=== PATIENT | male | born 1960 | race Caucasian/White ===

== ENCOUNTER 2017-04-02 09:06 | Day surgery (SDC) | payer MEDICARE, OTHER ==
[~2017-04-02] VITALS: Ht 172.7 cm; Wt 75.5 kg
[~2017-04-02 09:06] MED LIST: ASPI81CH; CLOP75 PO; FOLI1; ISOMON20 PO; LISI5 PO; LOVA40 PO; METO50 PO; OXYACE5T PO; PANT40; PENVK500 PO; PROM25; Percocet 5-3251 EACH PO; Ranexa1000 MG; TAMS.4ER PO; TRAM50 PO; Valium5 MG PO; WARF7.5 PO; Zofran Odt4 MG SL
[2017-04-02 10:32] LABS: BASOPHILS ABSOLUTE AUTO 0.06 K/mm3 (0.00-0.23); BASOPHILS PERCENT AUTO 1 % (0-2); EOSINOPHILS ABSOLUTE AUTO 0.13 K/mm3 (0.00-0.68); EOSINOPHILS PERCENT AUTO 2 % (0-6); Hematocrit 50.1 % (37.0-53.0); Hemoglobin 16.5 g/dL (13.5-17.5); IMMATURE GRAN ABSOLUTE AUTO 0.02 K/mm3 (0.00-0.10); IMMATURE GRAN PERCENT AUTO 0 % (0-1); LYMPHOCYTES ABSOLUTE AUTO 2.76 K/mm3 (0.84-5.20); LYMPHOCYTES PERCENT AUTO 33 % (21-46); MONOCYTES ABSOLUTE AUTO 0.65 K/mm3 (0.16-1.47); MONOCYTES PERCENT AUTO 8 % (4-13); Mean Corpuscular HGB Conc 32.9 g/dL (31.5-36.5); Mean Corpuscular Volume 97 fL (80-100); Mean Platelet Volume 9.6 fL (9.1-12.4); NEUTROPHILS ABSOLUTE AUTO 4.68 K/mm3 (1.96-9.15); NEUTROPHILS PERCENT AUTO 56 % (41-73); Platelet Count 230 K/mm3 (150-400); RDW Coefficient Variation 12.7 % (11.7-14.2); RDW Standard Deviation 45.5 fL (35.1-46.3); Red Blood Cell Count 5.15 M/mm3 (4.30-5.90)
[2017-04-02 10:40] LABS: International Normalized Ratio 1.08; Prothrombin Time Results 11.3 Sec (9.7-11.5)
[2017-04-02 10:42] LABS: Anion Gap 8 mmol/L (6-16); Blood Urea Nitrogen 13 mg/dL (8-24); Bun/Creatinine Ratio 14.1 (12.0-20.0); CO2, Blood 27 mmol/L (21-32); Calcium, Blood 8.9 mg/dL (8.5-10.1); Chloride, Blood 103 mmol/L (98-108); Creatinine, Blood 0.92 mg/dL (0.60-1.20); Glomerular Filtration Rate >60 (60-); Glucose, Blood 84 mg/dL (70-99); Potassium, Blood 4.2 mmol/L (3.5-5.5); Sodium, Blood 138 mmol/L (136-145)
== END 2017-04-02 16:45 | disposition home or self-care (01) ==
LOC: MHTC 09:06
PROVIDERS: Internal Medicine Cardiovascular Disease
PROC: 4A023N7 Measurement of Cardiac Sampling and Pressure, Left Heart, Percutaneous Approach (ICD-10-PCS; principal; 2017-04-02)
DX: R07.9 Chest pain, unspecified (principal); I25.10 Atherosclerotic heart disease of native coronary artery without angina pectoris; E78.5 Hyperlipidemia, unspecified; I10 Essential (primary) hypertension; F17.200 Nicotine dependence, unspecified, uncomplicated; Z88.8 Allergy status to other drugs, medicaments and biological substances; Z88.5 Allergy status to narcotic agent; Z95.1 Presence of aortocoronary bypass graft
CPT/HCPCS: 80048; 85025; 85610; 93458; 99152; 99153; C1769; C1894; J0690; J1644; J2250; J3010; J7030; Q9967

== ENCOUNTER → 2017-09-10 | Outpatient (CLI) | payer MEDICARE, OTHER ==
[2017-09-10 16:30] LABS: U Amphetamine Screen Not Detected; U Barbituate Screen Not Detected; U Benzodiazapine Screen Not Detected; U Buprenorphine Screen DETECTED; U Cannabinoids Screen Not Detected; U Cocaine Screen Not Detected; U Methadone Screen Not Detected; U Methamphetamine Screen Not Detected; U Opiates Screen Not Detected; U Oxycodone Screen Not Detected; U Phencyclidine Screen Not Detected; U Propoxyphene Screen Not Detected
== END ==
LOC: LAB 15:08 → LAB SHORT 15:08
PROVIDERS: Internal Medicine Hematology & Oncology
DX: Z51.81 Encounter for therapeutic drug level monitoring (principal); Z79.899 Other long term (current) drug therapy

== ENCOUNTER → 2018-04-15 | Outpatient (CLI) | payer MEDICARE, OTHER ==
[2018-04-15 13:29] LABS: U Amphetamine Screen Not Detected; U Barbituate Screen Not Detected; U Benzodiazapine Screen Not Detected; U Buprenorphine Screen DETECTED; U Cannabinoids Screen Not Detected; U Cocaine Screen Not Detected; U Methadone Screen Not Detected; U Methamphetamine Screen Not Detected; U Opiates Screen Not Detected; U Oxycodone Screen Not Detected; U Phencyclidine Screen Not Detected; U Propoxyphene Screen Not Detected
== END | disposition home or self-care (01) ==
LOC: LAB SHORT 11:24 → LAB 11:24
PROVIDERS: Internal Medicine Hematology & Oncology
DX: Z51.81 Encounter for therapeutic drug level monitoring (principal); F11.20 Opioid dependence, uncomplicated; Z79.899 Other long term (current) drug therapy
CPT/HCPCS: G0480

== ENCOUNTER 2018-06-28 00:49 | Emergency (ER) | payer MEDICARE, OTHER ==
[~2018-06-28] VITALS: Ht 170.2 cm; Wt 74.8 kg
[2018-06-28 01:09] LABS: BASOPHILS ABSOLUTE AUTO 0.06 K/mm3 (0.00-0.23); BASOPHILS PERCENT AUTO 0 % (0-2); EOSINOPHILS PERCENT AUTO 0 % (0-6); Hematocrit 47.2 % (37.0-53.0); Hemoglobin 15.6 g/dL (13.5-17.5); IMMATURE GRAN ABSOLUTE AUTO 0.09 K/mm3 (0.00-0.10); IMMATURE GRAN PERCENT AUTO 1 % (0-1); LYMPHOCYTES ABSOLUTE AUTO 1.14 K/mm3 (0.84-5.20); LYMPHOCYTES PERCENT AUTO 6 % (21-46); MONOCYTES ABSOLUTE AUTO 0.49 K/mm3 (0.16-1.47); MONOCYTES PERCENT AUTO 3 % (4-13); Mean Corpuscular HGB 31.9 pg (26.0-34.0); Mean Corpuscular HGB Conc 33.1 g/dL (31.5-36.5); Mean Corpuscular Volume 97 fL (80-100); Mean Platelet Volume 9.8 fL (9.1-12.4); NEUTROPHILS PERCENT AUTO 91 % (41-73); Platelet Count 355 K/mm3 (150-400); RDW Coefficient Variation 12.1 % (11.7-14.2); RDW Standard Deviation 43.7 fL (35.1-46.3); Red Blood Cell Count 4.89 M/mm3 (4.30-5.90); White Blood Cell Count 18.88 K/mm3 (4.00-11.30)
[2018-06-28 01:28] LABS: Alanine Aminotransfer (ALT/SGP 18 U/L (12-78); Albumin, Blood 3.8 g/dL (3.4-5.0); Albumin/Globulin Ratio 1.1 (0.8-1.8); Alk Phos 104 U/L (50-136); Anion Gap 7 mmol/L (6-16); Aspartate Aminotrans (AST/SGOT 26 U/L (12-37); Bilirubin, Total 0.5 mg/dL (0.1-1.0); Blood Urea Nitrogen 9 mg/dL (8-24); Bun/Creatinine Ratio 10.7 (12.0-20.0); CO2, Blood 25 mmol/L (21-32); Chloride, Blood 108 mmol/L (98-108); Creatinine, Blood 0.84 mg/dL (0.60-1.20); Globulin, Blood 3.5 g/dL (2.2-4.0); Glomerular Filtration Rate >60 (60-); Glucose, Blood 135 mg/dL (70-99); Potassium, Blood 4.2 mmol/L (3.5-5.5); Sodium, Blood 140 mmol/L (136-145); Total Protein, Blood 7.3 g/dL (6.4-8.2)
[2018-06-28] MEDS ORDERED: Zofran4 MG PO (02:09)
[2018-06-28] MEDS ORDERED: Ativan0.5 MG PO (02:09)
[2018-06-28] MEDS ORDERED: BENADRYL25 MG PO (02:09)
== END 2018-06-28 02:45 | disposition home or self-care (01) ==
LOC: ER 00:49
PROVIDERS: Emergency Medicine
DX: F11.23 Opioid dependence with withdrawal (principal); I25.10 Atherosclerotic heart disease of native coronary artery without angina pectoris; F17.200 Nicotine dependence, unspecified, uncomplicated; Z88.5 Allergy status to narcotic agent; Z88.8 Allergy status to other drugs, medicaments and biological substances; Z79.899 Other long term (current) drug therapy; Z79.01 Long term (current) use of anticoagulants; Z79.02 Long term (current) use of antithrombotics/antiplatelets; Z79.82 Long term (current) use of aspirin
CPT/HCPCS: 80053; 83690; 85025; 96361; 96374; 96375; 99284-25; A9270-GY; J1200; J2060; J2405; J2765; J7030

== ENCOUNTER 2020-04-30 23:36 | Inpatient (IN) | payer MEDICARE, OTHER ==
[~2020-04-30] VITALS: Ht 182.9 cm; Wt 90.1 kg
[~2020-04-30 23:36] MED LIST changes: +Ativan0.5 MG PO; +BENADRYL25 MG PO; +IBU800 MG PO; +Zofran4 MG PO
[2020-05-01 00:05] LABS: Calcium, Ionized (POC) 0.96 mmol/L (1.10-1.46); Chloride (POC) 102 mmol/L (98-108); Glucose (ISTAT POC) 152 mg/dL (70-99); Potassium (POC) 4.8 mmol/L (3.5-5.5); Sodium (POC) 133 mmol/L (135-148); Total CO2 (POC) 26 mmol/L (21-32)
[2020-05-01 00:29] LABS: BASOPHILS ABSOLUTE AUTO 0.18 K/mm3 (0.00-0.23); BASOPHILS PERCENT AUTO 1 % (0-2); EOSINOPHILS ABSOLUTE AUTO 0.14 K/mm3 (0.00-0.68); EOSINOPHILS PERCENT AUTO 1 % (0-6); Hematocrit 48.8 % (37.0-53.0); Hemoglobin 15.6 g/dL (13.5-17.5); IMMATURE GRAN ABSOLUTE AUTO 0.95 K/mm3 (0.00-0.10); IMMATURE GRAN PERCENT AUTO 5 % (0-1); LYMPHOCYTES ABSOLUTE AUTO 4.62 K/mm3 (0.84-5.20); LYMPHOCYTES PERCENT AUTO 22 % (21-46); MONOCYTES ABSOLUTE AUTO 0.98 K/mm3 (0.16-1.47); MONOCYTES PERCENT AUTO 5 % (4-13); Mean Corpuscular HGB 33.2 pg (26.0-34.0); Mean Corpuscular Volume 104 fL (80-100); Mean Platelet Volume 9.2 fL (9.1-12.4); NEUTROPHILS ABSOLUTE AUTO 14.01 K/mm3 (1.96-9.15); NEUTROPHILS PERCENT AUTO 67 % (41-73); NRBC ABSOLUTE 0.02 K/mm3 (0.00-0.02); NRBC Auto 0.1 /100 WBC (0.0-0.2); Platelet Count 205 K/mm3 (150-400); RDW Coefficient Variation 13.8 % (11.7-14.2); RDW Standard Deviation 53.4 fL (35.1-46.3); White Blood Cell Count 20.88 K/mm3 (4.00-11.30)
[2020-05-01 00:30] LABS: Source, Urine Clean Catch
[2020-05-01 00:34] LABS: Appearance, Urine Cloudy (Clear); Bilirubin, Urine Neg (Neg); Blood, Urine 3+ (Neg); Color, Urine Yellow (P-Yellow); Glucose Qualitative, Urine Neg (Neg); Ketones, Urine Neg (Neg); Leukocyte Esterase, Urine 1+ (Neg); Nitrite, Urine Neg (Neg); Protein, Urine 4+ (Neg); Specific Gravity, Urine 1.025 (1.003-1.022); Urobilinogen, Urine 1+ (Normal)
[2020-05-01 00:38] LABS: PCO2 Arterial 52.1 mmHg (35-45); PO2 Arterial 105 mmHg (80-100)
[2020-05-01 00:39] LABS: pH Blood Arterial 7.28 (7.35-7.45)
[2020-05-01 01:01] LABS: U Amphetamine Screen Not Detected; U Barbituate Screen Not Detected; U Benzodiazapine Screen Not Detected; U Buprenorphine Screen DETECTED; U Cannabinoids Screen Not Detected; U Cocaine Screen Not Detected; U Methadone Screen Not Detected; U Methamphetamine Screen Not Detected; U Opiates Screen DETECTED; U Oxycodone Screen Not Detected; U Phencyclidine Screen Not Detected; U Propoxyphene Screen Not Detected
[2020-05-01 01:07] LABS: Amorphous Mod (0-Heavy); Bacteria Few /hpf; Squamous Epithelial Cells Few /hpf (Few); White Blood Cells, Urine 0-2 /hpf (0-5)
[2020-05-01 01:08] LABS: Hyaline Casts 0-2 /lpf (0-2)
[2020-05-01 01:22] LABS: Alanine Aminotransfer (ALT/SGP 154 U/L (12-78); Albumin, Blood 2.8 g/dL (3.4-5.0); Alk Phos 86 U/L (50-136); Anion Gap 4 mmol/L (6-16); Aspartate Aminotrans (AST/SGOT 181 U/L (12-37); Bilirubin, Total 0.3 mg/dL (0.1-1.0); Blood Urea Nitrogen 14 mg/dL (8-24); Bun/Creatinine Ratio 14.3 (12.0-20.0); CO2, Blood 26 mmol/L (21-32); Calcium, Blood 7.2 mg/dL (8.5-10.1); Chloride, Blood 108 mmol/L (98-108); Creatinine, Blood 0.98 mg/dL (0.60-1.20); Globulin, Blood 2.9 g/dL (2.2-4.0); Glomerular Filtration Rate >60 (60-); Glucose, Blood 155 mg/dL (70-99); Potassium, Blood 4.2 mmol/L (3.5-5.5); Sodium, Blood 138 mmol/L (136-145); Total Protein, Blood 5.7 g/dL (6.4-8.2); Troponin I 0.128 ng/mL (0.000-0.040)
[2020-05-01 01:48] LABS: International Normalized Ratio 1.17; Prothrombin Time Results 12.4 Sec (9.7-11.5)
--- NOTE | 2020-05-01 07:45 | NUR ---
ASSUMPTION OF CARE/SUMMARY PT TO ICU 13 VIA HOSPITAL BED WITH LUDLOW MACHINE OPERATOR RN @ [id number]. PT INTUBATED AND SEDATED WITH PROPOFOL. PT UNRESPONSIVE, NOT WITHDRAWING FROMAIN PAINFUL STIMULI, NO COUGH REFLEX AND PUPILS PINPOINT. VENT TO TO AC 18/500/5/30%. PTS EARS, HANDS AND FEET CYANOTIC. MONITOR SHOWS IRREGULAR RHYTHM WITH HR 80'S-90'S, BP STABLE. PER REPORT FROM , PT FOUND DOWN AND CPR INITIATED BY , NO BRUISING OR OTHER TRAUMA NOTED TO CHEST. PT GIVEN 300 AMIO IN THE FIELD, LUDLOW MACHINE OPERATOR BROUGHT AMIO GTT TO ROOM, VERBAL ORDER TO DC AMIO GTT FROM DR BROWNLEE. PTS SKIN IS COOL, RADIAL AND PEDAL PULSES PALPABLE, HEPARIN GTT INTITIATED, MANAGED PER PHARMACY. OG IN PLACE WITH DARK RED OUTPUT, DR BROWNLEE AWARE. TEMP PROBE OAKLEY IN PLACE. COOLING INITITATED WITH COOLING BLANKET. PT BEGAN HAVING SPORADIC MOVEMENT OF ENTIRE BODY, DIFFICULT TO DISCERN, SEIZURE VS POSTURING VS TWITCHING, ACTIVITY LASTED APPROX 5 MINUTES. REPORT GIVEN TO DANTE LOPEZ.
--- NOTE | 2020-05-01 08:00 | NUR ---
INITIAL ASSESSMENT PATIENT INTUBATED AND ON SEDATION. PATIENT UNRESPONSIVE AT THIS TIME. NO COUGH/ GAG/ SWALLOW REFLEXES NOTED. EXES FIXED AND PINPOINT. COOLING BLANKET ON. COOLING BLANKET ADJUSTED BY THIS NURSE FROM MANUAL, WITH BLANKET SET AT 33 DEGREES, TO AUTO FOR GOAL TEMP OF 96.8 DEGREES FAHRENHEIT. NO SIGNS OF PAIN NOTED. PATIENT ON VENT SETTINGS OF AC 18, TV 500, PEEP 5 AND 30% FIO2. ETT 7.5, 24 AT THE GUMS. LUNGS COARSE THROUGHOUT. PATIENT IN SR WITH BBB, HR 60S TO 70S. SBP 90S TO LOW 100S. PULSES FAINT. HANDS, FEET, AND EARS DUSKY; ALL CAP REFILLS LESS THAN 3 SECONDS. TRACE EDEMA NOTED TO BILAT FEET. ABDOMEN MODERATELY DISTENDED, FIRM, WITH HYPOACTIVE BS NOTED. OG TO LIS; COFFEE GROUND DRAINAGE NOTED. OG BEING CLAMPED FOR 1 HOUR AFTER MEDICATION ADMINISTRATION. LAST BM ON THE . OAKLEY IN PLACE DRAINING YELLOW, CLOUDY COLORED URINE WITH SEDIMENT NOTED. ANGIOSEAL TO R GROIN FROM REAL ESTATE BROKER. TEGARDERM CHG IN PLACE. NO BLEEDING, BRUISING, OR HEMATOMA NOTED. SCAR NOTED TO MIDLINE CHEST. SOME DISCOLORATION NOTED TO PATIENT'S NECK; BLANCHABLE. PROPOFOL INFUSING AT 50 MCG/ KG/ MINUTE, HEPARIN AT 15 UNITS/ KG/ HOUR, NS TKO. EKG PERFORMED. BED LOW. WILL CONTINUE TO MONITOR PATIENT FREQUENTLY THROUGHOUT SHIFT.
[2020-05-01 08:15] LABS: BASOPHILS ABSOLUTE AUTO 0.05 K/mm3 (0.00-0.23); BASOPHILS PERCENT AUTO 0 % (0-2); EOSINOPHILS ABSOLUTE AUTO 0.01 K/mm3 (0.00-0.68); EOSINOPHILS PERCENT AUTO 0 % (0-6); Hematocrit 50.2 % (37.0-53.0); Hemoglobin 16.1 g/dL (13.5-17.5); IMMATURE GRAN ABSOLUTE AUTO 0.11 K/mm3 (0.00-0.10); IMMATURE GRAN PERCENT AUTO 1 % (0-1); LYMPHOCYTES ABSOLUTE AUTO 1.11 K/mm3 (0.84-5.20); LYMPHOCYTES PERCENT AUTO 6 % (21-46); MONOCYTES ABSOLUTE AUTO 1.15 K/mm3 (0.16-1.47); MONOCYTES PERCENT AUTO 7 % (4-13); Mean Corpuscular HGB 33.4 pg (26.0-34.0); Mean Corpuscular HGB Conc 32.1 g/dL (31.5-36.5); Mean Corpuscular Volume 104 fL (80-100); Mean Platelet Volume 9.3 fL (9.1-12.4); NEUTROPHILS ABSOLUTE AUTO 15.14 K/mm3 (1.96-9.15); NEUTROPHILS PERCENT AUTO 86 % (41-73); Platelet Count 175 K/mm3 (150-400); RDW Coefficient Variation 13.8 % (11.7-14.2); RDW Standard Deviation 53.4 fL (35.1-46.3); Red Blood Cell Count 4.82 M/mm3 (4.30-5.90); White Blood Cell Count 17.57 K/mm3 (4.00-11.30)
[2020-05-01 08:17] LABS: PCO2 Arterial 43.8 mmHg (35-45); PO2 Arterial 89.9 mmHg (80-100); pH Blood Arterial 7.31 (7.35-7.45)
[2020-05-01 08:54] LABS: Anion Gap 8 mmol/L (6-16); Blood Urea Nitrogen 13 mg/dL (8-24); Bun/Creatinine Ratio 16.4 (12.0-20.0); CO2, Blood 21 mmol/L (21-32); Calcium, Blood 8.2 mg/dL (8.5-10.1); Chloride, Blood 106 mmol/L (98-108); Creatinine, Blood 0.79 mg/dL (0.60-1.20); Glomerular Filtration Rate >60 (60-); Glucose, Blood 130 mg/dL (70-99); Potassium, Blood 4.6 mmol/L (3.5-5.5); Sodium, Blood 135 mmol/L (136-145)
--- NOTE | 2020-05-01 09:17 | NUR ---
DR. MCBRIDE INFORMED OF TROPONIN OF 6.790 AND THAT EKG RESULTS ARE AVAILABLE IF HE WOULD LIKE TO TAKE A LOOK. STATED HE WOULD BE DOWN TO LOOK SHORTLY.
--- NOTE | 2020-05-01 10:30 | NUR ---
DR. TINOCO AND DR. BROWNLEE IN ROOM TO SEE PATIENT. UPDATED ON PATIENT STATUS/ CONDITION. DR. BROWNLEE STATED SHE WOULD LIKE TARGETED HYPOTHERMIA FOR [address] BROWNLEE ALSO STATED THAT NO NEED FOR SEDATION VACATION TO ASSESS NEURO STATUS UNTIL 24 HOURS POST ARREST.
--- NOTE | 2020-05-01 12:00 | NUR ---
PATIENT HAS TEMP OF 96.2 DEGREES FAHRENHEIT. PATIENT REMAINS UNRESPONSIVE, INTUBATED AND ON SEDATION. PROPOFOL DECREASED TO 40 MCG/ KG/ MINUTE. SCLERA REDDENED. HR 60S TO 70S. SBP 120S TO 130S. URINE OUTPUT ONLY 100 MLS FOR THIS SHIFT. BLOOD SUGAR OF 152. NO OTHER ACUTE CHANGES TO NOTE ON AT THIS TIME. WILL CONTINUE TO MONITOR.
[2020-05-01 12:09] LABS: Test Name PTT
[2020-05-01 12:43] LABS: Result >150
[2020-05-01 14:55] LABS: BASOPHILS ABSOLUTE AUTO 0.04 K/mm3 (0.00-0.23); BASOPHILS PERCENT AUTO 0 % (0-2); EOSINOPHILS PERCENT AUTO 0 % (0-6); Hematocrit 48.1 % (37.0-53.0); Hemoglobin 15.9 g/dL (13.5-17.5); IMMATURE GRAN ABSOLUTE AUTO 0.08 K/mm3 (0.00-0.10); IMMATURE GRAN PERCENT AUTO 1 % (0-1); LYMPHOCYTES ABSOLUTE AUTO 0.96 K/mm3 (0.84-5.20); LYMPHOCYTES PERCENT AUTO 6 % (21-46); MONOCYTES ABSOLUTE AUTO 1.21 K/mm3 (0.16-1.47); MONOCYTES PERCENT AUTO 8 % (4-13); Mean Corpuscular HGB 33.6 pg (26.0-34.0); Mean Corpuscular HGB Conc 33.1 g/dL (31.5-36.5); Mean Corpuscular Volume 102 fL (80-100); Mean Platelet Volume 9.7 fL (9.1-12.4); NEUTROPHILS PERCENT AUTO 85 % (41-73); Platelet Count 196 K/mm3 (150-400); RDW Coefficient Variation 13.9 % (11.7-14.2); RDW Standard Deviation 53.1 fL (35.1-46.3); Red Blood Cell Count 4.73 M/mm3 (4.30-5.90); White Blood Cell Count 15.69 K/mm3 (4.00-11.30)
--- NOTE | 2020-05-01 15:33 | NUR ---
TEMP OF 99.6 DEGREES FAHRENHEIT. COOLING BLANKET OFF PER DR. BROWNLEE PATIENT WOKE NEUROLOGICALLY. HR 8OS T0 90S. SBP LOW 100S. HEPARIN AT 13 UNITS/ KG/ HOUR. PRECEDEX AT 0.7 MCG/ KG/ HOUR, LR AT 75 MLS/ HOUR.
[2020-05-01 15:37] LABS: Triglycerides 216 mg/dL (30-160)
[2020-05-01 15:44] LABS: Anion Gap 8 mmol/L (6-16); Blood Urea Nitrogen 14 mg/dL (8-24); Bun/Creatinine Ratio 19.1 (12.0-20.0); CO2, Blood 24 mmol/L (21-32); Calcium, Blood 8.5 mg/dL (8.5-10.1); Chloride, Blood 105 mmol/L (98-108); Creatinine, Blood 0.73 mg/dL (0.60-1.20); Glomerular Filtration Rate >60 (60-); Glucose, Blood 122 mg/dL (70-99); Sodium, Blood 137 mmol/L (136-145)
--- NOTE | 2020-05-01 17:24 | NUR ---
REPORT GIVEN TO ASSUMING NURSE, BAYLEE JIN.
--- NOTE | 2020-05-01 17:52 | NUR ---
PT HYPOENSIVE W MAP 50'S. PRECEDEX PLACED ON SB. PROPOFOL AT 10MCG. PT STACKING AND AGITATED. ATIVAN 1MG GIVEN; THIS HELPED. DR BROWNLEE NOTIFIED. 1LITER NS BOLUS ORDERED AND STARTED. PICC TO BE PLACED. COPIOUS AMTS OF THICK DYE SPUTUM SUCTIONED. SPUTUM SENT.
--- NOTE | 2020-05-01 18:44 | NUR ---
PICC PLACED W/O DIFFICULTY. PT REMAINS HYPOTENSIVE. LEVOPHED GTT STARTED AT 4MCG. PT'S UPDATED
--- NOTE | 2020-05-01 18:45 | NUR ---
Ashtyn said for Mr. Hill at bedside. No family present throughout shift. Pt on vent and sedated. I will remain available to pt and family.
--- NOTE | 2020-05-01 21:00 | NUR ---
ASSUMPTION OF CARE PT INTUBATED AND SEDATED, VENT SET TO AC 18/450/5/30%, PT DOES NOT WITHDRAW FROM PAINFUL STIMULI, PUPILS EQUAL AND REACTIVE, WHILE IN ROOM, PT BEGAN SHAKING, LIMBS WERE VERY RIGID AND HIGH PEAK PRESSURES NOTED ON THE VENT. MEDICATED WITH 2MG ATIVAN AND NOTIFIED DR BROWNLEE OF POSS SEIZURE ACTIVITY. NEW ORDER PLACED FOR EEG. MONITOR SHOWS SINUS RHYTHM WIHT BBB, HR 70'S, LEVO INF TO MAINTAIN MAPS> 65. SKIN IS COOL, CYANOSIS IN EXTREMETIES BUT IMPROVED FROM PREVIOUS SHIFT. OG IN PLACE TO LIS, OAKLEY IN PLACE WITH LITTLE URINE OUTPUT.
--- NOTE | 2020-05-02 | NUR ---
AFIB RVR PT NOTED TO GOT INTO AFIB WITH RVR @ APPROX [id number], DR BROWNLEE NOTIFIED AND UPDATED ON PTS STATUS, LEVO ON SB SINCE 2100 WITH STABLE BP. NEW ORDER FOR AMIO BOLUS AND AMIO GTT, CHEMISTRY PANEL ORDERED AT THIS TIME.
[2020-05-02 00:56] LABS: BASOPHILS ABSOLUTE AUTO 0.02 K/mm3 (0.00-0.23); BASOPHILS PERCENT AUTO 0 % (0-2); EOSINOPHILS PERCENT AUTO 0 % (0-6); Hematocrit 42.1 % (37.0-53.0); Hemoglobin 13.5 g/dL (13.5-17.5); IMMATURE GRAN ABSOLUTE AUTO 0.19 K/mm3 (0.00-0.10); IMMATURE GRAN PERCENT AUTO 1 % (0-1); LYMPHOCYTES ABSOLUTE AUTO 1.34 K/mm3 (0.84-5.20); LYMPHOCYTES PERCENT AUTO 9 % (21-46); MONOCYTES PERCENT AUTO 7 % (4-13); Mean Corpuscular HGB 32.9 pg (26.0-34.0); Mean Corpuscular HGB Conc 32.1 g/dL (31.5-36.5); Mean Corpuscular Volume 103 fL (80-100); Mean Platelet Volume 10.1 fL (9.1-12.4); NEUTROPHILS ABSOLUTE AUTO 12.89 K/mm3 (1.96-9.15); NEUTROPHILS PERCENT AUTO 84 % (41-73); NRBC ABSOLUTE 0.02 K/mm3 (0.00-0.02); NRBC Auto 0.1 /100 WBC (0.0-0.2); Platelet Count 162 K/mm3 (150-400); RDW Coefficient Variation 14.2 % (11.7-14.2); RDW Standard Deviation 54.2 fL (35.1-46.3); White Blood Cell Count 15.44 K/mm3 (4.00-11.30)
--- NOTE | 2020-05-02 01:00 | NUR ---
CODE SAMMY THIS NURSE AT BEDSIDE TO DRAW ORDERED LABS, RHYTHM ON MONITOR SHOWED ASYSTOLE, UNABLE TO PALPATE CAROTID PULSE, CODE BLUE INITIATED AND COMPRESSIONS STARTED @ 0014. SEE CODE BLUE SHEET FOR RHYTHM AND MEDS. PT CURRENLTY ON EPI AND DOPAMINE GTT TO MAINTAIN HR AND BP. PTS SPOUSE AND SON NOTIFIED.
[2020-05-02 01:03] LABS: Alanine Aminotransfer (ALT/SGP 129 U/L (12-78); Albumin, Blood 2.5 g/dL (3.4-5.0); Alk Phos 68 U/L (50-136); Anion Gap 8 mmol/L (6-16); Aspartate Aminotrans (AST/SGOT 544 U/L (12-37); Bilirubin, Total 0.7 mg/dL (0.1-1.0); Blood Urea Nitrogen 11 mg/dL (8-24); Bun/Creatinine Ratio 15.8 (12.0-20.0); CO2, Blood 23 mmol/L (21-32); Calcium, Blood 7.6 mg/dL (8.5-10.1); Chloride, Blood 107 mmol/L (98-108); Globulin, Blood 2.6 g/dL (2.2-4.0); Glomerular Filtration Rate >60 (60-); Glucose, Blood 119 mg/dL (70-99); Magnesium, Blood 1.8 mg/dL (1.6-2.4); Phosphorus, Blood 2.4 mg/dL (2.5-4.9); Potassium, Blood 4.7 mmol/L (3.5-5.5); Sodium, Blood 138 mmol/L (136-145); Total Protein, Blood 5.1 g/dL (6.4-8.2)
[2020-05-02 04:50] LABS: PO2 Arterial 182 mmHg (80-100); pH Blood Arterial 7.12 (7.35-7.45)
[2020-05-02 05:08] LABS: BASOPHILS ABSOLUTE AUTO 0.08 K/mm3 (0.00-0.23); BASOPHILS PERCENT AUTO 0 % (0-2); EOSINOPHILS ABSOLUTE AUTO 0.03 K/mm3 (0.00-0.68); EOSINOPHILS PERCENT AUTO 0 % (0-6); Hematocrit 44.2 % (37.0-53.0); Hemoglobin 13.8 g/dL (13.5-17.5); IMMATURE GRAN ABSOLUTE AUTO 0.23 K/mm3 (0.00-0.10); IMMATURE GRAN PERCENT AUTO 1 % (0-1); LYMPHOCYTES ABSOLUTE AUTO 1.08 K/mm3 (0.84-5.20); LYMPHOCYTES PERCENT AUTO 4 % (21-46); MONOCYTES ABSOLUTE AUTO 1.75 K/mm3 (0.16-1.47); MONOCYTES PERCENT AUTO 6 % (4-13); Mean Corpuscular HGB 32.9 pg (26.0-34.0); Mean Corpuscular HGB Conc 31.2 g/dL (31.5-36.5); Mean Corpuscular Volume 105 fL (80-100); Mean Platelet Volume 9.8 fL (9.1-12.4); NEUTROPHILS ABSOLUTE AUTO 24.67 K/mm3 (1.96-9.15); NEUTROPHILS PERCENT AUTO 89 % (41-73); Platelet Count 195 K/mm3 (150-400); RDW Coefficient Variation 14.1 % (11.7-14.2); RDW Standard Deviation 55.6 fL (35.1-46.3); White Blood Cell Count 27.84 K/mm3 (4.00-11.30)
--- NOTE | 2020-05-02 05:55 | NUR ---
SHIFT SUMMARY PT REMAINS INTUBATED AND SEDATED, VENT SET TO 18/400/5/75%, PT AGITATED AT TIMES, PULLING AT RESTRAINTS, MEDICATED WITH PRN FENTANYL AND ATIVAN. DR MCBRIDE TO ROOM AFTER CODE BLUE, AMIO BOLUS AND GTT NEVER INITIATED, DR MCBRIDE RECOMMENDED NOT STARTING AMIO UNLESS PT GOES BACK INTO AFIB RVR, NO OTHER INTERVENTIONS ORDERED. PTS SPOUSE AND SON TO BEDSIDE, DR BROWNLEE DISCUSSED CARE WITH FAMILY AND ALLOWED FAMILY TIME AT BEDSIDE WITH PT. STS SHE WANTS TO CONTINUE WITH FULL CARE BUT TO MAKE PT COMFORTABLE POSSIBLE AND NOT TO START CPR IF HEART STOPS AGAIN. CODE STATUS CHANGED TO DNR AND PURPLE ARMBAND PLACED ON PTS L WRIST. MONITOR CURRENTLY SHOWS AFIB WITH BBB, HR 50'S-60'S, MAPS> 70 ON EPI GTT @ 30mcg/min AND DOPAMINE @ 20mcg/kg/min. FAMILY NO LONGER AT BEDSIDE, SPOUSE STS SHE WILL COME IN LATER TODAY.
[2020-05-02 06:05] LABS: Anion Gap 15 mmol/L (6-16); Blood Urea Nitrogen 14 mg/dL (8-24); Bun/Creatinine Ratio 12.5 (12.0-20.0); CO2, Blood 18 mmol/L (21-32); Calcium, Blood 7.4 mg/dL (8.5-10.1); Chloride, Blood 100 mmol/L (98-108); Creatinine, Blood 1.12 mg/dL (0.60-1.20); Glomerular Filtration Rate >60 (60-); Glucose, Blood 354 mg/dL (70-99); Potassium, Blood 3.3 mmol/L (3.5-5.5); Sodium, Blood 133 mmol/L (136-145)
--- NOTE | 2020-05-02 07:15 | NUR ---
DR. TINOCO CALLED AND UPDATED ON STATUS OF PATIENT. INFORMED THAT PATIENT'S RHYTHM HAS CHANGED THIS AM. INFORMED THAT HR IN THE 50S AND THAT PATIENT IS MAXED ON EPI AND DOPAMINE DRIPS. INFORMED THAT POTASSIUM 3.3 THIS AM. MAG OF 1.8 AND PHOS OF 2.4 AROUND MIDNIGHT. INFORMED OF SODIUM OF 133 AND BNP OF 1269. ORDERED FOR 2 G MAG AND 40 MEQ OF KCL TO BE GIVEN.
--- NOTE | 2020-05-02 07:31 | NUR ---
DR. MCBRIDE CALLED AND INFORMED THAT NURSE PERFORMED EKG DUE TO RHYTHM CHANGE AND THAT IT SHOWS COMPLETE HEART BLOCK. PLAN TO HAVE FAMILY COME IN AT [address] MCBRIDE IN ROOM ABOUT POSSIBLE INTERVENTIONS.
--- NOTE | 2020-05-02 08:00 | NUR ---
INITIAL ASSESSMENT PATIENT INTUBATED AND ON SEDATION. PATIENT UNRESPONSIVE. POSITIVE GAG AND SWALLOW NOTED. EYES FIXED. SCLERAL EDEMA NOTED. NO PAIN NOTED. PATIENT AFEBRILE. PATIENT ON AC 18, TV 400, PEEP 5, 60% FIO2. LUNGS COARSE THROUGHOUT. PATIENT HAS SMALL AMOUNT OF THIN, DYE SECRETIONS NOTED WHEN ETT SUCTIONED. PATIENT IN COMPLETE HEART BLOCK THIS AM. HR 50S TO 60S. SBP 1-TEENS TO 120S. PULSES FAINT. EARS, FEET, AND HANDS DUSKY; CAP REFILL LESS THAN 3 SECONDS. TRACE EDEMA NOTED TO BILAT FEET. LEGS MOTTLED FROM BILAT THIGHS DOWN. ABDOMEN MODERATELY DISTENDED, FIRM, WITH HYPOACTIVE BS NOTED. OG TO LIS. OAKLEY DRAINING DARK YELLOW URINE. R GROIN SITE WNL; NO BLEEDING, BRUISING, HEMATOMA NOTED. SCAR NOTED TO MIDLINE CHEST. SKIN IS PALE AND CYANOTIC. PROPOFOL INFUSING AT 20 MCG/ KG/ MINUTE, DOPAMINE AT 20 MCG/ KG. MINUTE, EPINEPHRINE AT 30 MCG/ MINUTE, NS TKO. LEVOPHED ON SB. BED LOW. WILL CONTINUE TO MONITOR PATIENT FREQUENTLY THROUGHOUT SHIFT.
--- NOTE | 2020-05-02 08:40 | NUR ---
PATIENT'S AND SON HERE TO VISIT.
--- NOTE | 2020-05-02 10:13 | NUR ---
Echocardiogram using 0.50ml of Definity contrast performed.
--- NOTE | 2020-05-02 10:15 | NUR ---
DR. BROWNLEE UPDATED ON PATIENT STATUS. INFORMED THAT PATIENT IN COMPLETE HEART BLOCK THIS AM WITH HR IN THE 50S. INFORMED THAT PATIENT RECEIVING REPLACEMENTS FOR MAGNESIUM AND POTASSIUM THIS AM. INFORMED THAT PATIENT MOTTLED FROM MID THIGH DOWN. DR. MCBRIDE ARRIVED TO UNIT AND IS SPEAKING WITH DR. BROWNLEE ABOUT PATIENT.
--- NOTE | 2020-05-02 12:00 | NUR ---
PATIENT AFEBRILE. HR RANGING ANYWERE FROM 50S TO 90S. SBP 1-TEENS TO 130S. DOPAMINE REMAINS AT 20 MCG/ KG/ MINUTE AND EPINEPHRINE AT 30 MCG/ MINUTE. DR. BROWNLEE WANTS TEMPORARY PACEMAKER TO BE PLACED BEFORE EPI AND DOPAMINE START TO BE TITRATED DOWN. PATIENT HAS ONLY HAD 65 MLS OF URINE OUTPUT. DR. BROWNLEE AWARE OF THIS.
[2020-05-02 13:22] LABS: Base Excess Venous -7.6 mmol/L; Bicarbonate Venous 18.4 mmol/L (24.0-30.0); PCO2 Venous 42.6 mmHg (38-42); PO2 Venous 54.5 mmHg (38-42)
[2020-05-02 13:23] LABS: pH Blood Venous 7.27 (7.34-7.37)
--- NOTE | 2020-05-02 14:00 | NUR ---
Attempted to visit family. Pt currently in cathode ray tube salvage processor and Staff report pt's RN with pt in cathode ray tube salvage processor, family speaking with Dr Holland. Will check back tomorrow.
[2020-05-02 14:06] LABS: Influenza A, PCR NEGATIVE (NEGATIVE); Influenza B, PCR NEGATIVE (NEGATIVE); Resp Syncytial Virus, PCR NEGATIVE (NEGATIVE); SARS-Cov-2 (COVID-19) PCR, MMC NEGATIVE (NEGATIVE)
--- NOTE | 2020-05-02 15:50 | NUR ---
PATIENT RETURNED FROM [facility] WITH TEMPORARY PACEMAKER, RATE OF 64, SENSING 2.0 MV, OUTPUT [address] R GROIN SITE STABLE; NO BLEEDING, BRUISING, OR HEMATOMA NOTED.
--- NOTE | 2020-05-02 16:40 | NUR ---
HR IN THE 60S. SBP IN THE LOW 100S. PATIENT PACED. UNDERLYING COMPLETE HEART BLOCK WITH PVCS.
--- NOTE | 2020-05-02 17:32 | NUR ---
Spiritual care note: I met with spouse, Cari, and son at bedside. Cari states that Tahir has been "miserable" with his physical limitations. He has been talking about "going home": which Cari says home= heaven. She appears to understand that if he survives this he will be even less able to do the things he loves, and she admits "he would hate that." Still, she and their son are not ready to give up hope. Cari was tearful throughout conversation and very appreciaitve of prayer and emotional job counselor/support. This family will benefit from continued support and careful explainations in easy to understand terms. There are three adult sons. Only one is local. Single Needle Tufting Machine Operator services will remain available.
--- NOTE | 2020-05-02 17:55 | NUR ---
DR. MCBRIDE IN ROOM TO CHECK ON PATIENT. OBSERVED TEMPORARY PACER SETTINGS, RHYTHM, AND BALLOON PUMP SETTINGS AND PRESSURES. DOCTOR STATED TO KEEP AUGMENTATION AT MAX AND ATTEMPT TO TITRATE PRESSORS DOWN TOLERATED. NO FURTHER ORDERS AT THIS TIME.
--- NOTE | 2020-05-02 18:51 | NUR ---
SHIFT SUMMARY PATIENT REMAINED INTUBATED AND ON SEDATION. PATIENT REMAINED UNRESPONSIVE. PATIENT CONTINUED TO HAVE POSITIVE COUGH AND GAG. EYES REMAINED FIXED AND SLUGGISH. PATIENT REMAINED AFEBRILE. NO SIGNS OF PAIN NOTED T/O SHIFT. PATIENT REMAINED ON AC 18, TV 400, PEEP 5 AND 60% FIO2. LUNGS REMAINED COARSE THROUGHOUT. PATIENT CHANGED RHYTHM TO COMPLETE HEART BLOCK WITH PVCS EARLY THIS SHIFT. IT WAS DETERMINED AFTER MUCH TALK BETWEEN KEM MORROW AND FAMILY TO TAKE PATIENT TO AEROSPACE MANAGER FOR TEMPORARY PACEMAKER, HOWEVER WOULD LIKE TO CONTINUE WITH DNR STATUS. PATIENT TAKEN TO AEROSPACE MANAGER AND HAD TEMP PACER AND BALLOON PUMP INSERTED. PACER SETTINGS- RATE 64, OUTPUT 10 MA, SENSE 2.0 MV. BALLOON PUMP AUGMENTATION AT MAX AND PRESSORS BEING TITRATED DOWN ABLE. EPINEPHRINE NOW AT 15 MCG/ MINUTE FROM 20. DOPAMINE REMAINS AT 20 MCG/ KG/ MINUTE OF NOW. NO BM THIS SHIFT. OG REMAINS TO LIS. OAKLEY DRAINED ONLY 250 MLS OF DARK YELLOW URINE. R GROIN AEROSPACE MANAGER ACCESS SITE REMAINS WNL; NO BLEEDING, BRUISING OR HEMATOMA NOTED. TEMP PACER AT 55 CM. 40 MEQ KCL GIVEN THIS AM FOR POTASSIUM OF 3.3. 2 G MAG GIVEN FOR LEVEL OF 1.8. ECHO PERFORMED THIS SHIFT. PATIENT'S AND SON HERE SEVERAL TIMES DURING DAY. BED LOW. PATIENT HAS NO SIGNS OF PAIN NOTED AT THIS TIME. REPORT WILL BE GIVEN TO ONCOMING ORACLE ADF CONSULTANT NURSE SHORTLY.
--- NOTE | 2020-05-02 19:00 | NUR ---
ASSUMED CARE ASSUMED CARE OF PATIENT. REMAINS INTUBATED- AC 14, TV 400, PEEP 5, FIO2 60%. RR 28-30. SEDATED WITH PROPOFOL AT 25MCG/KG/MIN. NO RESPONSE TO NOXIOUS STIMULI. NO SPONTANEOUS MOVEMENT NOTED. JANETTE, 4MM, SLUGGISH. MONITOR SHOWS PACED RHYTHM WITH UNDERLYING THIRD DEGREE HEART BLOCK ALTERNATING WITH SECOND DEGREE BLOCK. BALLOON PUMP IN PLACE TO RIGHT FEMORAL- AUTO MODE, 1:1, ECG TRIGGER. AUGMENTED PRESSURES 120s-130s. TEMPORARY VENOUS PACEMAKER IN PLACE TO RIGHT FEMORAL WELL- RATE 64, VENTRICULAR PACING WITH mA 10. EPINEPHRINE INFUSING AT 15MCG/MIN. DOPAMINE INFUSING AT 20MCG/KG/MIN. OG TO LIS WITH DARK BROWN DRAINAGE. OAKLEY PATENT AND DRAINING DARK YELLOW URINE. MOTTLING NOTED TO BLEs AT KNEES. EARS ARE PURPLE. UPPER CHEST IS ALSO PURPLISH. HANDS AND FEET ARE COOL TO TOUCH. SEE SHIFT ASSESSMENT FOR FULL ASSESSMENT.
--- NOTE | 2020-05-02 19:10 | NUR ---
REPORT GIVEN TO ASSUMING NURSE, MACIEL CORRAL.
--- NOTE | 2020-05-02 22:22 | NUR ---
HEPARIN GTT HEPARIN GTT STARTED AT 13UNITS/KG/HR PER PHARMACY.
[2020-05-03 03:49] LABS: BASOPHILS ABSOLUTE AUTO 0.04 K/mm3 (0.00-0.23); BASOPHILS PERCENT AUTO 0 % (0-2); EOSINOPHILS ABSOLUTE AUTO 0.01 K/mm3 (0.00-0.68); EOSINOPHILS PERCENT AUTO 0 % (0-6); Hematocrit 37.9 % (37.0-53.0); Hemoglobin 12.5 g/dL (13.5-17.5); IMMATURE GRAN ABSOLUTE AUTO 0.29 K/mm3 (0.00-0.10); IMMATURE GRAN PERCENT AUTO 1 % (0-1); LYMPHOCYTES ABSOLUTE AUTO 2.03 K/mm3 (0.84-5.20); LYMPHOCYTES PERCENT AUTO 8 % (21-46); MONOCYTES PERCENT AUTO 5 % (4-13); Mean Corpuscular HGB 33.2 pg (26.0-34.0); Mean Corpuscular Volume 101 fL (80-100); Mean Platelet Volume 9.9 fL (9.1-12.4); NEUTROPHILS ABSOLUTE AUTO 22.96 K/mm3 (1.96-9.15); NEUTROPHILS PERCENT AUTO 86 % (41-73); NRBC ABSOLUTE 0.06 K/mm3 (0.00-0.02); NRBC Auto 0.2 /100 WBC (0.0-0.2); Platelet Count 119 K/mm3 (150-400); RDW Coefficient Variation 13.8 % (11.7-14.2); RDW Standard Deviation 51.4 fL (35.1-46.3); Red Blood Cell Count 3.77 M/mm3 (4.30-5.90); White Blood Cell Count 26.73 K/mm3 (4.00-11.30)
[2020-05-03 04:23] LABS: Calcium, Blood 7.6 mg/dL (8.5-10.1); Creatinine, Blood 2.51 mg/dL (0.60-1.20); Magnesium, Blood 1.9 mg/dL (1.6-2.4); Phosphorus, Blood 2.8 mg/dL (2.5-4.9); Potassium, Blood 4.3 mmol/L (3.5-5.5)
[2020-05-03 04:30] LABS: PCO2 Arterial 35.4 mmHg (35-45); PO2 Arterial 55.9 mmHg (80-100); pH Blood Arterial 7.35 (7.35-7.45)
--- NOTE | 2020-05-03 06:16 | NUR ---
SHIFT SUMMARY REMAINS INTUBATED- FIO2 NOW 30%. RR MID-20s TO 30. MINIMAL COUGH NOTED- SX'd SMALL AMOUNT OF DYE SPUTUM. IABP IN PLACE TO RIGHT FEMORAL- AUTO 1:1 WITH AUGMENTED PRESSURES >110. TANSVENOUS PACER IN PLACE- RATE 64, mA 16, VENTRICULAR PACING. MONITOR SHOWS FREQUENT PVCs AND OCCASIONAL BIGEMINY. IABP HAS DIFFICULTY SENSING PACER AT TIMES. EPINEPHRINE INFUSING @ 25MCG/MIN. DOPAMINE INFUSING @ 20MCG/KG/MIN. HEPARIN GTT CONTINUES AT 13MG/KG/HR PER PHARMACY- NEXT PTT SCHEDULED FOR 1000. SEDATED WTIH PROPOFOL. NO SPONTANEOUS/PURPOSEFUL MOVEMENTS NOTED. NO WITHDRAWAL TO NOXIOUS STIMULI. CORNEAL REFLEX PRESENT. NO GAG THIS AM. OG TO LIS WITH 100CC DARK BROWN DRAINAGE. OAKLEY PATENT AND DRAINING- 275CC DARK YELLOW URINE THIS SHIFT. MOTTLING CONTINUES UNCHANGED FROM PREVIOUS ASSESSMENTS. WILL REPORT TO ONCOMING RN WHEN AVAILABLE.
--- NOTE | 2020-05-03 07:00 | NUR ---
ASSUMED PT CARE. PT REMAINS INTUBATED, SEDATED, ON IABP. TRANSVENOUS PACING CONTINUES. PT IS NONRESPONSIVE TO NOXIOUS STIMULI. PUPILS 3 MM AND EQUALLY REACTIVE TO LIGHT. RHYTHM PACED WITH RATE SET AT 64. HR DROPPED TO 39 AND PACER NOT CAPTURING-INCREASED MA TO 18 AND CAPTURE RESTORED. IABP ON 1:1 MODE. AUGMENTED BP 100-110'S SEE HEMODYNAMIC FLOWSHEET FOR FREQUENT VS/IABP DOCUMENTATION. DOPAMINE DRIP @ 30 MCG/KG/MIN AND EPINEPHRINE DRIP @ 30 MCG/KG/MIN. SKIN IS MOTTLED THROUGH OUT-FEET ARE COLD AND MOTTLED. PT EARS AND NOSE ARE PURPLE. DP/PT PULSES PER DOPPLER. RIGHT FEMORAL PACER INSERTION SITE AND IABP SITE CLEAR. PACER INSERTION @ APROX 55 CM. ETT TO VENT AC 18-RR 32. FLAIL CHEST NOTED. SATS>90% ON FIO2 40% LUNGS COARSE AND DIMINISHED THROUGH OUT R>L. PROPOFOL DRIP @ 25 MCG/KG/MIN FOR PT TO TOLERATE MECHANICAL VENTILATION PRIMARILY. OGT TO LIS WITH SMALL AMOUNT OF BROWN, LIQUID DRAINAGE. OAKLEY WITH SCANT AMOUNT OF YELLOW URINE TO UROMETER.
--- NOTE | 2020-05-03 09:58 | NUR ---
DR. MCBRIDE HERE TO SEE PT. UPDATED TO CURRENT IABP NUMBERS, VS, AND STATUS. NO NEW ORDERS. PTT DRAWN AND SENT TO LAB.
--- NOTE | 2020-05-03 10:17 | NUR ---
RR 40'S AND ASYNCHRONIZED WITH VENT. MED WITH FENTANYL 50 MCG IVP X1 SEDATION ADJUNCT.
--- NOTE | 2020-05-03 10:24 | NUR ---
PUPILS 5 MM AND NON-REACTIVE TO LIGHT. NO CORNEAL REFLEX. NO COUGH, GAG, OR SWALLOW REFLEX. NO NOTED MOVEMENT OF UPPER OR LOWER EXTREMITIES. PT REMAINS NONRESPONSIVE-EVEN TO NOXIOUS STIMULI.
--- NOTE | 2020-05-03 10:43 | NUR ---
DR. MCKEON MADE AWARE OF NEURO CHANGES. ALSO, NOTED THAT AUGMENTATION SUDDENLY TRENDING LESS THAN 100-85-90'S. ORDER GIVEN FOR VASOPRESSIN DRIP. EEG REQUESTED STAT.
--- NOTE | 2020-05-03 11:11 | NUR ---
PT , SON, AND DAUGHTER IN LAW HERE FOR VISIT. UPDATED TO FURTHER DECLINE IN NEURO STATUS. JESSICA MUNOZ FROM PALLIATIVE CARE ALSO PRESENT. PT FAMILY HAS DECIDED THAT THEY WOULD LIKE TO MAKE PT COMFORT CARE AT THIS TIME. FAMILY DOES NOT FEEL THAT AN EEG IS NECESSARY. DR. MCKEON UPDATED BY JESSICA MUNOZ.
--- NOTE | 2020-05-03 11:46 | NUR ---
PT EXTUBATED, PRESSORS DISCONTINUED, PACER OFF, AND IABP STOPPED @ 1145. PT @ 1146. PT FAMILY AT BEDSIDE. PALLIATIVE AND PASTORAL CARE ALSO PRESENT. DR. MCKEON AND DR. TINOCO NOTIFIED.
--- NOTE | 2020-05-03 12:58 | NUR ---
Spiritual care visit conducted. Patient's family are bedside and request a prayer prior to extubation. I provide prayer for patient and family. I then walk family out while patient is extubated. I conduct a brief life review and learn about the family dynamics and patient's passion to know God. After life support measures are removed, I provide prayer and grief support to family. Family grieve appropriately and and show signs of being comforted by the staff and voice their appreciation. I then walk family out toward the parking area.
--- NOTE | 2020-05-03 17:47 | NUR ---
Called to ER to see patient. Pt minimally responsive. Labored coarse breathing rapid heart rate. Pt hyperthermic with severe mottling and swelling pt appears eminent. Family notified pt placed on comfort care. Pt at 1600 family noified assisted with funneral plan. They chose [facility]. pt did not have any jewlery or wallet only belongings was tshirt and underwear, family and physician noified. Advised pt daughter he did not have is necklace or ring that she stated he always wears. Gave her our number for follow upcare.
--- NOTE | 2020-05-03 18:10 | NUR ---
Pt placed on comfort care and life support withdrawn. family and chaplian at bedside. assisted family with funneral planning. and social security benefits.
== END 2020-05-03 11:46 | DRG 228 ==
LOC: ER 23:36 → ICUW 05-01 00:47
PROVIDERS: Emergency Medicine; Internal Medicine Critical Care Medicine; ADMIT Internal Medicine
PROC: 0BH17EZ Insertion of Endotracheal Airway into Trachea, Via Natural or Artificial Opening (ICD-10-PCS; 2020-04-30)
PROC: 5A1945Z Respiratory Ventilation, 24-96 Consecutive Hours (ICD-10-PCS; 2020-04-30)
PROC: B2111ZZ Fluoroscopy of Multiple Coronary Arteries using Low Osmolar Contrast (ICD-10-PCS; principal; 2020-05-01)
PROC: 4A023N7 Measurement of Cardiac Sampling and Pressure, Left Heart, Percutaneous Approach (ICD-10-PCS; 2020-05-01)
PROC: 02HV33Z Insertion of Infusion Device into Superior Vena Cava, Percutaneous Approach (ICD-10-PCS; 2020-05-01)
PROC: 3E043XZ Introduction of Vasopressor into Central Vein, Percutaneous Approach (ICD-10-PCS; 2020-05-01)
PROC: 5A02210 Assistance with Cardiac Output using Balloon Pump, Continuous (ICD-10-PCS; 2020-05-02)
PROC: 5A1223Z Performance of Cardiac Pacing, Continuous (ICD-10-PCS; 2020-05-02)
PROC: 02HK3NZ Insertion of Intracardiac Pacemaker into Right Ventricle, Percutaneous Approach (ICD-10-PCS; 2020-05-02)
DX: I49.01 Ventricular fibrillation (principal); I21.3 ST elevation (STEMI) myocardial infarction of unspecified site; J96.91 Respiratory failure, unspecified with hypoxia; F11.20 Opioid dependence, uncomplicated; G93.1 Anoxic brain damage, not elsewhere classified; G40.89 Other seizures; T17.800A Unspecified foreign body in other parts of respiratory tract causing asphyxiation, initial encounter; T82.855A Stenosis of coronary artery stent, initial encounter; I46.8 Cardiac arrest due to other underlying condition; I25.10 Atherosclerotic heart disease of native coronary artery without angina pectoris; Z51.5 Encounter for palliative care; I44.2 Atrioventricular block, complete; Z95.1 Presence of aortocoronary bypass graft; Z79.01 Long term (current) use of anticoagulants; Z86.718 Personal history of other venous thrombosis and embolism; I45.10 Unspecified right bundle-branch block; Z66 Do not resuscitate; R57.0 Cardiogenic shock; I25.5 Ischemic cardiomyopathy; E87.6 Hypokalemia; G89.4 Chronic pain syndrome; Z78.1 Physical restraint status; F17.200 Nicotine dependence, unspecified, uncomplicated; Y92.9 Unspecified place or not applicable
CPT/HCPCS: 0241U; 31500; 33210; 33967; 36415; 36569; 36600; 51702; 70450; 71045; 76937; 80047; 80048; 80053; 81001; 82803; 82947; 83605; 83735; 83880; 84100; 84132; 84478; 84484; 85014; 85025; 85347; 85610; 85730; 87040; 87070; 87086; 87205; 92950; 93005; 93010; 93458; 94002; 94003; 94640; 96361; 96374; 96375; 99152; 99153; 99291-25; 99292; A9270; C1751; C1760; C1769; C1887; C1894; C8929; J0171; J0282; J0330; J0696; J1265; J1644; J1815; J2060; J2250; J2704; J3010; J3475; J3480; J7030; J7040; J7050; J7060; J7120; Q9957; Q9967